=== PATIENT | male | born 1985 | race African-American/Black ===

== ENCOUNTER 2021-07-15 09:57 | Outpatient (REF) | payer MEDICAID, SELFPAY | END 2021-07-15 09:58 | disposition home or self-care (01) | LOC: HO.NEURO 09:57 | PROVIDERS: PCP Internal Medicine; Visit Provider Internal Medicine | DX: Z13.89 Encounter for screening for other disorder (principal) ==

== ENCOUNTER 2021-09-09 09:48 | Outpatient (REF) | payer MEDICAID, SELFPAY ==
--- NOTE | 2021-09-09 09:53 | EMG_ITS ---
This is a 36-year-old man with a long history of right upper extremity numbness, was diagnosed with carpal tunnel syndrome a few years ago, but did not have surgery. He has type 1 diabetes. PHYSICAL EXAMINATION: On examination, he is alert, oriented with normal intellectual functions. His cranial nerves II through XII are normal. Muscle tone and strength normal in all 4 extremities. Deep tendon reflexes symmetrical. No Tinel or Phalen sign. IMPRESSION: Carpal tunnel syndrome. Nerve conduction and EMG study: Moderately severe carpal tunnel syndrome on the right. Normal EMG of the right C5-T1 innervated muscles. MD ASHLEIGH Johnson/KATELIN / [id number]
== END 2021-09-09 09:49 | disposition home or self-care (01) ==
LOC: HO.NEURO 09:48
PROVIDERS: PCP Internal Medicine; Visit Provider Internal Medicine
DX: G56.03 Carpal tunnel syndrome, bilateral upper limbs (principal)
CPT/HCPCS: 95885; 95910